=== PATIENT | male | born 1955 | race Caucasian/White ===

== ENCOUNTER 2022-02-09 09:30 | Inpatient (IN) | payer BC ==
[~2022-02-09] VITALS: Ht 172.7 cm; Wt 77.1 kg
[2022-02-09 09:38] VITALS: BP 119/80
[2022-02-09 10:05] LABS: BASO % 0.7 % (0.0-1.0); EOS # 0.1 10*3/uL (0.0-0.4); EOS % 1.4 % (1.0-4.0); HEMATOCRIT 42.9 % (42.0-52.0); LYMPH # 1.5 10*3/uL (1.3-4.4); MEAN CELL VOLUME 104.1 fl (80.0-94.0); MEAN CORPUSCULAR HGB 35.9 pg (27.0-31.0); MEAN CORPUSCULAR HGB CONC 34.5 g/dl (33.0-37.0); MEAN PLATELET VOLUME 9.7 fl (9.6-12.3); MONO # 0.6 10*3/uL (0.1-1.0); MONO % 9.6 % (3.0-9.0); NEUT # 3.5 10*3/uL (2.3-7.9); NEUT % 60.9 % (47.0-73.0); PLATELET COUNT AUTOMATED 123 10*3/uL (130-400); RED BLOOD COUNT 4.12 10*6/uL (4.50-5.90); RED CELL DISTRI WIDTH 12.7 % (0-14.5); WHITE BLOOD COUNT 5.7 10*3/uL (4.8-10.8)
[2022-02-09 10:17] LABS: BILIRUBIN 2+ (Negative); BLOOD Negative (Negative); CLARITY Cloudy (Clear); COLOR Dark Yellow (Yellow); GLUCOSE Negative (Negative); KETONE 1+ (Negative); LEUKO ESTERASE Trace (Negative); NITRITE Negative (Negative); SPECIFIC GRAVITY >= 1.030 (1.001-1.030)
[2022-02-09 10:26] LABS: URINE AMPHETAMINES < 1000 (1000ng/ml); URINE BARBITURATES < 200 (200ng/ml); URINE BENZODIAZEPINES < 200 (200ng/ml); URINE CANNABINOIDS (THC) > 50 (50ng/ml); URINE COCAINE < 300 (300ng/ml); URINE METHADONE < 300 (300ng/ml); URINE OPIATES < 300 (300ng/ml)
[2022-02-09 10:27] LABS: URINE PHENCYCLIDINE < 25 (25ng/ml)
[2022-02-09 10:38] LABS: BACTERIA 2+; FINE GRANULAR CAST TNTC; HYALINE CAST TNTC
[2022-02-09 10:50] LABS: ALKALINE PHOSPHATASE 71 U/L (45-117); BUN 9 mg/dl (7-24); CHLORIDE 102 mmol/L (98-107); CREATININE 0.76 mg/dL (0.70-1.30); LIPASE 131 U/L (73-393); POTASSIUM 3.9 mmol/L (3.5-5.1); SGOT/AST 260 IU/L (3-35); SGPT/ALT 155 U/L (12-78); SODIUM 140 mmol/L (136-145); TOTAL PROTEIN 7.4 gm/dL (6.4-8.2)
[2022-02-09 11:13] VITALS: BP 120/78
[2022-02-09 12:04] VITALS: BP 155/77
[2022-02-09 13:30] VITALS: BP 142/74
[2022-02-09 16:00] VITALS: BP 139/71
[2022-02-09 20:00] VITALS: BP 124/70
[2022-02-10] VITALS: BP 127/76
[2022-02-10 08:00] VITALS: BP 152/90
[2022-02-10 12:00] VITALS: BP 110/73; BP 128/77
[2022-02-10 16:00] VITALS: BP 120/59; BP 134/88
[2022-02-10 20:00] VITALS: BP 121/73
[2022-02-11] VITALS: BP 123/67
[2022-02-11 08:00] VITALS: BP 127/88
[2022-02-11 12:00] VITALS: BP 125/62
[2022-02-11 16:00] VITALS: BP 138/91
[2022-02-11 20:00] VITALS: BP 144/87
[2022-02-12] VITALS: BP 128/66
[2022-02-12 08:00] VITALS: BP 136/76
[2022-02-12 12:00] VITALS: BP 120/70
[2022-02-12 16:00] VITALS: BP 124/72
[2022-02-12 20:00] VITALS: BP 147/80
[2022-02-13] VITALS: BP 142/76
[2022-02-13 06:17] LABS: BASO % 0.4 % (0.0-1.0); EOS # 0.1 10*3/uL (0.0-0.4); EOS % 1.8 % (1.0-4.0); LYMPH # 1.4 10*3/uL (1.3-4.4); LYMPH % 25.8 % (27.0-41.0); MEAN CELL VOLUME 101.9 fl (80.0-94.0); MEAN CORPUSCULAR HGB 36.2 pg (27.0-31.0); MEAN CORPUSCULAR HGB CONC 35.5 g/dl (33.0-37.0); MEAN PLATELET VOLUME 10.9 fl (9.6-12.3); MONO # 0.6 10*3/uL (0.1-1.0); MONO % 10.8 % (3.0-9.0); NEUT # 3.3 10*3/uL (2.3-7.9); NEUT % 60.8 % (47.0-73.0); PLATELET COUNT AUTOMATED 99 10*3/uL (130-400); RED BLOOD COUNT 3.73 10*6/uL (4.50-5.90); RED CELL DISTRI WIDTH 11.7 % (0-14.5); WHITE BLOOD COUNT 5.5 10*3/uL (4.8-10.8)
[2022-02-13 06:51] LABS: CREATININE 0.49 mg/dL (0.70-1.30)
[2022-02-13 08:00] VITALS: BP 150/80
[2022-02-13] MEDS ORDERED: THERA TABLET400 MCG PO (11:07)
[2022-02-13] MEDS ORDERED: NATURE'S BLEND F1 MG PO (11:07)
[2022-02-13] MEDS ORDERED: VITAMIN B-1100 M1 PO (11:07)
== END 2022-02-13 12:20 | disposition home or self-care (01) | DRG 897 ==
LOC: ED 09:30 → 4E 09:54 → EDHOLD 09:54 → 4E 11:09
PROVIDERS: Emergency Medicine; ADMIT Internal Medicine; ATTEND Internal Medicine
DX: F10.230 Alcohol dependence with withdrawal, uncomplicated (principal); R74.01 Elevation of levels of liver transaminase levels; E80.6 Other disorders of bilirubin metabolism; D69.6 Thrombocytopenia, unspecified; F32.A Depression, unspecified; F17.210 Nicotine dependence, cigarettes, uncomplicated; Z71.6 Tobacco abuse counseling; Z82.0 Family history of epilepsy and other diseases of the nervous system